=== PATIENT | male | born 1970 | race Two or more races ===

== ENCOUNTER → 2016-04-14 | Outpatient (CLI) | payer OTHER, MEDICAID ==
--- NOTE | 2016-04-14 18:02 | US ---
Ultrasound Venous Duplex Doppler - Bilateral Legs at 1717 hours History: Bilateral leg pain. M 79.605 Findings: Ultrasound venous Duplex and Doppler imaging of the bilateral common femoral veins, femoral veins, popliteal veins, calf veins, and greater saphenous vein origins demonstrates normal compressi bility, Duplex color-flow, Doppler flow without deep venous thrombosis. Abnormality in the left anterior thigh region is a subcutaneous mildly hyperechoic soft tissue mass m easuring 1.6 x 1.5 x 0.6 cm. Impression: 1. A left anterior thigh hyperechoic 1.6 x 1.5 x 0.6 cm which may represent a lipoma, however a low-g rade liposarcoma cannot be excluded and therefore surgical excisional biopsy consult is recommended. 2. No deep venous thrombosis bilateral legs. Findings and recommendations discussed with Geraldo Franco MD at 18:01 hour, 04/14/2016. Final report concurs with initial preliminary interpretation.
== END ==
LOC: FIMAGING 17:08
PROVIDERS: ATTEND Internal Medicine
DX: R93.6 Abnormal findings on diagnostic imaging of limbs (principal)

== ENCOUNTER 2016-04-25 20:09 | Emergency (ER) | payer OTHER, MEDICAID ==
--- NOTE | 2016-04-25 20:23 | CPEKG ---
Heart Rate: 67 RR Interval: 896 P-R Interval: 176 QRSD Interval: 74 QT Interval: 392 QTC Interval: 414 P Goshen: 20 QRS Goshen: 18 T Wave Goshen: 31 EKG Severity - NORMAL ECG - EKG Impression: SINUS RHYTHM Electronically Signed By: Phuc Gonzalez 25-Apr-2016 23:11:13
[2016-04-25] MEDS ORDERED: NS 1,000 ML IV ONE (20:34)
--- NOTE | 2016-04-25 20:34 | EDPHY ---
H & P Time Seen by Provider: 04/25/16 20:18 HPI/ROS: Chief complaint. Chest pain, history blood clots HPI. 45-year-old male with history of DVT/PE on Coumadin presents with heaviness in his anterior chest that has been continuous and constant for 24 hours. Some radiation to his back into his right arm. He notes some shortness of breath. No fever cough. No unusual leg pain or swelling. He claims med compliance. He has had a previous heart catheterization. ROS Constitutional. no fever/chills, no weakness Eyes. no problems with vision ENT. no sore throat, no nasal drainage Cardiovascular. Chest heaviness Respiratory. Shortness of breath but no cough Abdominal. no abdominal pain, no nausea/vomiting, no diarrhea . no problems urinating MS. no calf pain/swelling, no neck/back pain, no joint pain Skin. no rash Lymph. no swollen glands Neuro. no headache, no dizziness, no difficulty walking or with speech Past Medical/Surgical History: Past medical history significant for peptic ulcer disease, bipolar, asthma, DVT/ PE, alcoholism, cocaine use, chronic pain Social History: Single, nonsmoker, no alcohol Smoking Status: Former smoker Physical Exam: General Appearance: Alert well-developed male mild distress vital signs are stable Eyes: Pupils equal and round no pallor or injection. ENT, Mouth: Mucous membranes are moist. Respiratory: There are no retractions, lungs are clear to auscultation. Cardiovascular: Regular rate and rhythm. Gastrointestinal: Abdomen is soft and nontender, no masses, bowel sounds normal. Neurological: Awake and alert, sensory and motor exams grossly normal. Skin: Warm and dry, no rashes. Musculoskeletal: Neck is supple nontender. Extremities symmetrical, full range of motion. Psychiatric: Patient is oriented X 3, there is no agitation. Constitutional: Initial Vital Signs Temperature (C) 36.7 C 04/25/16 20:19 Heart Rate 67 04/25/16 20:19 Respiratory Rate 15 04/25/16 20:19 Blood Pressure 138/79 H 04/25/16 20:19 O2 Sat (%) 94 04/25/16 20:19 O2 Delivery Mode Room Air Allergies/Adverse Reactions: No Known Allergies Allergy (Verified 06/30/15 16:11) Home Medications: Medication Instructions Recorded ALPRAZolam [Xanax 1 MG (RX)] 1 mg PO BID PRN 05/07/12 Albuterol [Proventil Inhaler (RX)] 1 - 2 puffs IH Q4 PRN 05/07/12 Warfarin Sodium [Coumadin 7.5MG 7.5 mg PO DAILY16 05/07/12 (RX)] clonAZEPAM [Klonopin] 2 mg PO HS 05/07/12 fentanYL [Fentanyl] 100 mcg TD Q48H 05/07/12 methYLPHENIDATE HCL [Ritalin 10mg 10 mg PO TID 05/07/12 (RX)] oxyCODONE HCL [Roxicodone] 15 mg PO Q6 05/07/12 Fluticasone/Salmeter 250/50Mcg 1 puffs IH BIDI 05/10/12 [Advair] Alprazolam [Xanax] 1 mg PO 08,15 07/24/12 Clonazepam 2 mg PO HS 07/24/12 Fluticasone/Salmeterol [Advair 1 each IH BID 07/24/12 500-50 Diskus] Sumatriptan Succinate [Imitrex] 100 mg PO DAILY PRN 07/24/12 fentaNYL [Duragesic 100 MCG Patch 100 mcg TD Q48H 07/24/12 (RX)] oxyCODONE IR [Oxycodone HCl Ir] 30 mg PO BID PRN 07/24/12 Omeprazole 03/10/13 Medical Decision Making - Diagnostics EKG Interpretation: EKG interpreted by me shows normal sinus rhythm normal interval and axis. QRS is normal there is no significant ST elevation or depression. No obvious evidence for right heart strain. Rate is 67 Imaging: One-view chest x-ray interpreted by me is normal CT angio of his chest reviewed by me and discussed with Dr. Navin Rodríguez shows no evidence for pulmonary embolus. He does have elevation of his right hemidiaphragm Procedures: IV normal saline ED Course/Re-evaluation: Re-evaluation at 10:00 p.m. patient is stable Patient and I discussed imaging lab EKG results. We discussed treatment plan including criteria for return importance of follow-up and further evaluation. He expresses understanding and agreement Differential Diagnosis: I considered pulmonary embolus, pneumothorax, acute coronary syndrome. The patient has had continuous pain for 24 hours with normal EKG and normal troponin and no evidence for pneumonia or pulmonary embolus - Data Points Laboratory Results: Laboratory Results 04/25/16 20:27 04/25/16 20:27 04/25/16 04/25/16 04/25/16 20:27 20:27 20:27 WBC 5.92 10^3/uL 10^3/uL (3.80-9.50) RBC 5.87 10^6/uL 10^6/uL (4.40-6.38) Hgb 16.0 g/dL g/dL (13.7-17.5) Hct 48.5 % % (40.0-51.0) MCV 82.6 fL fL (81.5-99.8) MCH 27.3 pg L pg (27.9-34.1) MCHC 33.0 g/dL g/dL (32.4-36.7) RDW 12.4 % % (11.5-15.2) Plt Count 141 10^3/uL L 10^3/uL (150-400) MPV 9.9 fL fL (8.7-11.7) Neut % (Auto) 60.1 % % (39.3-74.2) Lymph % (Auto) 27.4 % % (15.0-45.0) Lewis % (Auto) 9.6 % % (4.5-13.0) Eos % (Auto) 2.2 % % (0.6-7.6) Baso % (Auto) 0.5 % % (0.3-1.7) Nucleat RBC Rel Count 0.0 % % (0.0-0.2) Absolute Neuts (auto) 3.56 10^3/uL 10^3/uL (1.70-6.50) Absolute Lymphs (auto) 1.62 10^3/uL 10^3/uL (1.00-3.00) Absolute Monos (auto) 0.57 10^3/uL 10^3/uL (0.30-0.80) Absolute Eos (auto) 0.13 10^3/uL 10^3/uL (0.03-0.40) Absolute Basos (auto) 0.03 10^3/uL 10^3/uL (0.02-0.10) Absolute Nucleated RBC 0.00 10^3/uL 10^3/uL (0-0.01) Immature Gran % 0.2 % % (0.0-1.1) Immature Gran # 0.01 10^3/uL 10^3/uL (0.00-0.10) PT 14.1 SEC SEC (12.0-15.0) INR 1.10 (0.83-1.16) APTT 28.0 SEC SEC (23.0-38.0) D-Dimer < 0.27 ug/mLFEU ug/mLFEU (0.00-0.50) Sodium 141 mEq/L mEq/L (134-144) Potassium 4.2 mEq/L mEq/L (3.5-5.2) Chloride 104 mEq/L mEq/L (97-110) Carbon Dioxide 25 mEq/l mEq/l (22-31) Anion Gap 12 mEq/L mEq/L (8-16) BUN 14 mg/dL mg/dL (7-23) Creatinine 1.0 mg/dL mg/dL (0.7-1.3) Estimated GFR > 60 Glucose 95 mg/dL mg/dL (70-100) Calcium 9.0 mg/dL mg/dL (8.5-10.4) Troponin I < 0.012 ng/mL ng/mL (0-0.034) Medications Given: Discontinued Medications Sodium Chloride (Ns) 1,000 mls @ 0 mls/hr IV ONCE ONE PRN Reason: Wide Open Stop: 04/25/16 20:35 Last Admin: 04/25/16 20:41 Dose: 1,000 mls Departure - Departure Disposition: Home, Routine, Self-Care Clinical Impression: Chest pain Qualifiers: Chest pain type: precordial pain Qualified Code(s): R07.2 - Precordial pain Condition: Fair Instructions: Chest Pain (ED) Additional Instructions: Continue regular medications. Return for worsening symptoms. Recheck with Dr. Franco in 1-2 days for continuing symptoms Referrals: Geraldo Franco MD [Primary Care Provider] - 1-2 days without fail
[2016-04-25 20:42] LABS: % IMMATURE GRANULYOCYTES 0.2 % (0.0-1.1); ABSOLUTE IMMATURE GRANULOCYTES 0.01 10^3/uL (0.00-0.10); ADD DIFF? NO; ADD MORPH? NO; ADD SCAN? NO; ATYPICAL LYMPHOCYTE FLAG 10 (0-99); FRAGMENT RBC FLAG 0 (0-99); HEMATOCRIT 48.5 % (40.0-51.0); LEFT SHIFT FLG 0 (0-99); LIPEMIA HEMOLYSIS FLAG 80 (0-99); MEAN CELL HEMOGLOBIN 27.3 pg (27.9-34.1); MEAN CELL VOLUME 82.6 fL (81.5-99.8); MEAN PLATELET VOLUME 9.9 fL (8.7-11.7); PLATELET CLUMPS FLAG 0 (0-99); PLATELET COUNT 141 10^3/uL (150-400); RED BLOOD CELL COUNT 5.87 10^6/uL (4.40-6.38); RED CELL DISTRIBUTION WIDTH 12.4 % (11.5-15.2)
[2016-04-25 20:48] LABS: PROTIME(PATIENT) 14.1 SEC (12.0-15.0)
[2016-04-25 20:52] LABS: ANION GAP 12 mEq/L (8-16); CARBON DIOXIDE 25 mEq/l (22-31); CHLORIDE 104 mEq/L (97-110); GLOMERULAR FILTRATION RATE > 60; GLUCOSE 95 mg/dL (70-100); POTASSIUM 4.2 mEq/L (3.5-5.2); SODIUM 141 mEq/L (134-144)
[2016-04-25 21:02] LABS: TROPONIN I < 0.012 ng/mL (0-0.034)
[2016-04-25] MEDS ORDERED: IOPAMIDOL (ISOVUE-370) 150 ML BTL IV ONE (21:02)
[2016-04-25 22:45] VITALS: BP 94/65; PULSE 53; RESP 13; TEMP 98.8; O2SAT 92
== END 2016-04-25 22:44 | disposition home or self-care (01) ==
DX: R07.2 Precordial pain (principal); J45.909 Unspecified asthma, uncomplicated; Z79.01 Long term (current) use of anticoagulants; Z87.891 Personal history of nicotine dependence
CPT/HCPCS: 71010; 71275; 93005; 99285; Q9967

== ENCOUNTER → 2018-03-01 | Outpatient (CLI) | payer OTHER, MEDICAID | LOC: BMCIMAGING 13:59 | PROVIDERS: ATTEND Podiatrist Foot & Ankle Surgery | DX: S92.352K Displaced fracture of fifth metatarsal bone, left foot, subsequent encounter for fracture with nonunion (principal) ==

== ENCOUNTER → 2018-03-27 | Outpatient (CLI) | payer OTHER, MEDICAID | LOC: BMCIMAGING 13:49 | PROVIDERS: ATTEND Podiatrist Foot & Ankle Surgery | DX: S92.352K Displaced fracture of fifth metatarsal bone, left foot, subsequent encounter for fracture with nonunion (principal) ==